=== PATIENT | female | born 1990 | race Caucasian/White ===

== ENCOUNTER → 2019-01-01 | Outpatient (CLI) | payer BC ==
[~2019-01-01] MED LIST: DICLEGIS; MOTRIN 800800 MG/TAB PO; PERCOCET 325 MG1 TA2 PO; PRENATAL1 TA7 PO
== END ==
LOC: MC.RAD 10:33
DX: N63.11 Unspecified lump in the right breast, upper outer quadrant (principal)

== ENCOUNTER → 2019-12-12 | Outpatient (CLI) | payer BC | LOC: ZCOL.LAB 09:30 | DX: Z20.828 Contact with and (suspected) exposure to other viral communicable diseases (principal) ==

== ENCOUNTER 2019-12-18 05:29 | Inpatient (IN) | payer BC ==
[2019-12-18] VITALS (18 sets, daily range): BP systolic 82–111; BP diastolic 42–89; PULSE 66–106; TEMP 97.6–98.6
[~2019-12-18] VITALS: Ht 165.1 cm; Wt 66.4 kg
--- NOTE | 2019-12-18 05:35 | NUR ---
0535- PT PRESENTS TO LDR FOR SCHEDULED SECTION, AMBULATORY TO ROOM 210, CHANGED INTO GOWN. EFM X2 APPLIED. PLAN OF CARE FOR DAY DISCUSSED AND QUESTIONS ANSWERED. 0550- IV START TO RIGHT WRIST X2 ATTEMPTS. BLOOD DRAWN AND SENT TO LAB. LR INFUSING ORDERED. 0600- CONSENTS SIGNED.
[2019-12-18 07:03] LABS: BASO # 0.1 (0.0-0.2); BASO % 0.5 % (0.0-2.0); EOS # 0.1 (0.0-0.7); EOS % 1.1 % (0-4.0); GRAN # 9.3 (1.4-6.5); GRAN % 73.4 % (42.2-75.2); HEMATOCRIT 39.7 % (37.0-47.0); HEMOGLOBIN 13.3 g/dl (12.5-16.0); LYMPH % 15.8 % (20.0-51.0); MEAN CELL VOLUME 93 fl (80.0-100.0); MEAN CORPUSCULAR HEMOGLOBIN 31 pg (27.0-31.0); MEAN CORPUSCULAR HGB CONC 34 g/dl (33.0-37.0); MEAN PLATELET VOLUME 10.7 fl (7.4-10.4); MONO # 0.9 (0.1-0.6); MONO % 6.9 % (1.7-9.3); PLATELET COUNT 226 K/mm3 (130-400); RED BLOOD COUNT 4.26 M/mm3 (4.10-5.30)
[2019-12-18] MEDS ORDERED: PERCOCET 325 MG1 TA2 PO (07:09)
[2019-12-18] MEDS ORDERED: MOTRIN 800800 MG/TAB PO (07:09)
[2019-12-19 04:00] VITALS: BP 108/66; PULSE 73; TEMP 97.7
--- NOTE | 2019-12-19 06:30 | NUR ---
Report received from off going RN, [facility] taken over by this RN.
[2019-12-19 08:04] VITALS: BP 92/63; PULSE 67; TEMP 98.1
--- NOTE | 2019-12-19 09:46 | NUR ---
Initial visit; Patient thanked [employer] Driver for offering congratulations for the of her son and thanking her for choosing [facility].
[2019-12-19 16:43] VITALS: BP 97/62; PULSE 73; TEMP 98.1
[2019-12-19 20:35] VITALS: BP 103/75; PULSE 76; TEMP 97.8
[2019-12-20 08:27] VITALS: BP 93/68; PULSE 93; TEMP 98.1
--- NOTE | 2019-12-20 12:50 | NUR ---
Patient given dc insturctions. Deny questions. Escorted off unit.
== END 2019-12-20 12:50 | disposition home or self-care (01) | DRG 787 ==
LOC: OB 05:29
PROVIDERS: ADMIT Obstetrics & Gynecology
PROC: 10D00Z1 Extraction of Products of Conception, Low, Open Approach (ICD-10-PCS; principal; 2019-12-18)
DX: O34.211 Maternal care for low transverse scar from previous cesarean delivery (principal); O99.354 Diseases of the nervous system complicating childbirth; Z37.0 Single live birth; G43.909 Migraine, unspecified, not intractable, without status migrainosus; O99.824 Streptococcus B carrier state complicating childbirth; Z3A.39 39 weeks gestation of pregnancy
CPT/HCPCS: J1885; J2370; J2405; J2590; J7120

== ENCOUNTER 2023-08-05 07:58 | Day surgery (SDC) | payer BC ==
[~2023-08-05] VITALS: Ht 165.1 cm; Wt 59.7 kg
[~2023-08-05 07:58] MED LIST changes: +LR 1,000 ML IV SCH; +Ondansetron 4 MG/2 ML VIAL IV PRN
[2023-08-05] MEDS ORDERED: MAGNESIUM CITR100 MG PO (08:51)
[2023-08-05] MEDS ORDERED: SPRINTEC 35 MCG1 TAB PO (08:51)
[2023-08-05] MEDS ORDERED: PRIL40 PO (08:52)
[2023-08-05] MEDS ORDERED: DESYREL 50MG50 MG PO (08:53)
[2023-08-05] MEDS ORDERED: MAGNESIUM GLYC100 MG PO (08:53)
--- NOTE | 2023-08-05 08:56 | NUR ---
Pt arrived and escorted to bay 1, driver trainee to be called later on; VSS, RR regular and unlabored; consents x3 reviewed and signed; reviewed history/meds/pharm/alleriges; to place IV and await procedure.
[2023-08-05 08:57] VITALS: BP 117/88; PULSE 89; TEMP 98
[2023-08-05 10:20] VITALS: BP 111/86; PULSE 74; TEMP 98.1
--- NOTE | 2023-08-05 10:20 | NUR ---
PATIENT AMBULATED TO CHAIR WITH STEADY GAIT, ASSIST OF 2. DROWSY AND ORIENTED X3. DENIES PAIN, NAUSEA AND SHORTNESS OF BREATH. BREATHING REGULAR AND UNLABORED ON ROOM AIR. SKIN WARM AND DRY. IV IN PLACE. NURSE HANDOFF COMPLETED IN ROOM. SEE CHART FOR VITAL SIGNS. ONCE AWAKE AND ALERT, PATIENT HAD WATER, APPLESAUCE AND A MUFFIN. FOOD AND DRINK TOLERATED WELL. NO DYSPHGIA. CALL LIGHT IN REACH.
[2023-08-05 10:30] VITALS: BP 111/85; PULSE 66
[2023-08-05 10:45] VITALS: BP 99/80; PULSE 63
[2023-08-05 11:00] VITALS: BP 126/81; PULSE 80
--- NOTE | 2023-08-05 11:10 | NUR ---
1057: DR. KIMBLE MET WITH PATIENT IN ROOM TO DISCUSS PROCEDURE. 1040: DISCHARGE TEACHING COMPLETED WITH PRINTED EDUCATION AND INSTRUCTIONS SENT HOME WITH PATIENT. PATIENT VERBALIZED UNDERSTANDING OF TEACHING. 1100: IV REMOVED. GAUZE AND COBAN PLACED OVER SITE. 1110: PATIENT DISCHARGED HOME WITH [facility] () TRANSPORT.
== END 2023-08-05 11:10 | disposition home or self-care (01) ==
LOC: SDCO 07:58
DX: K21.00 Gastro-esophageal reflux disease with esophagitis, without bleeding (principal); K44.9 Diaphragmatic hernia without obstruction or gangrene; F45.8 Other somatoform disorders
CPT/HCPCS: J2704; J7120